=== PATIENT | female | born 1940 | race Caucasian/White ===

== ENCOUNTER 2023-07-03 17:24 | Emergency (ER) | payer MEDICARE ==
[~2023-07-03] VITALS: Ht 165.1 cm; Wt 59.1 kg
[2023-07-03 17:46] VITALS: BP 187/86; TEMP 97.1
[2023-07-03 19:14] VITALS: PULSE 72
[2023-07-03] MEDS ORDERED: Acetaminophen 325 MG TAB PO ONE (19:15)
[2023-07-03] MEDS ORDERED: Acetaminophen Oral Susp 325 MG/10.15 ML UD PO ONE (19:30)
== END 2023-07-03 19:38 | disposition home or self-care (01) ==
LOC: COL.ER 17:24
DX: M25.552 Pain in left hip (principal)

== ENCOUNTER 2023-09-06 08:59 | Outpatient (RCR) | payer MEDICARE, BC | END 2023-09-07 | LOC: WSPT | DX: R26.81 Unsteadiness on feet (principal); R53.81 Other malaise; M79.605 Pain in left leg ==

== ENCOUNTER → 2023-10-08 | Outpatient (RCR) | payer MEDICARE, BC | LOC: WSPT | DX: R26.81 Unsteadiness on feet (principal) ==